=== PATIENT | female | born 1975 | race Caucasian/White ===

== ENCOUNTER 2017-04-30 08:51 | Inpatient (IN) | payer OTHER ==
[2017-04-30] MEDS ORDERED: Nalbuphine 10 MG/1 ML Vial IVPUSH PRN (09:02)
[2017-04-30] MEDS ORDERED: Sodium Chloride 0.9% 10 ML Syringe FLUSH PRN (09:02)
[2017-04-30] MEDS ORDERED: Sodium Chloride 0.9% 2.5 ML Syringe FLUSH PRN (09:02)
[2017-04-30] MEDS ORDERED: Misoprostol 200 MCG Tab PO PRN (09:02)
[2017-04-30] MEDS ORDERED: Lidocaine 1% 50 ML MDV INJECT PRN (09:02)
[2017-04-30] MEDS ORDERED: Carboprost Tromethamine 250 MCG/1 ML Amp IM PRN (09:02)
[2017-04-30] MEDS ORDERED: Butorphanol 1 MG/ML SDV IVPUSH PRN (09:02)
[2017-04-30] MEDS ORDERED: Water For Irrigation,Sterile 1,000 ML Container IRR PRN (09:02)
[2017-04-30] MEDS ORDERED: Terbutaline 1 MG/ML SDV SUBCUT PRN (09:02)
[2017-04-30] MEDS ORDERED: Methylergonovine 0.2 MG/1 ML Amp IM PRN (09:02)
[2017-04-30] MEDS ORDERED: Oxytocin/Lactated Ringers 30 UNIT/500 ML BAG IV SCH ×2 (09:15)
[2017-04-30] MEDS: Lactated Ringers 1,000 ML IV SCH ×3 (10:30→19:08)
[2017-05-01] MEDS ORDERED: Lanolin 100% Cream 7 GM Tube TOP PRN (00:47)
[2017-05-01] MEDS ORDERED: Docusate Sodium 100 MG Cap PO PRN (00:47)
[2017-05-01] MEDS ORDERED: Witch Hazel Medicated Pads 40/Jar TOP PRN (00:47)
[2017-05-01] MEDS ORDERED: Acetaminophen 500 MG Tab PO PRN (00:47)
[2017-05-01] MEDS ORDERED: Benzocaine/Menthol 20%-0.5% Spray 78 GM Cannister TOP PRN (00:47)
[2017-05-01] MEDS ORDERED: Methylergonovine 0.2 MG/1 ML Amp IM PRN (00:47)
[2017-05-01] MEDS ORDERED: Bisacodyl 10 MG Supp RECTAL PRN (00:47)
[2017-05-01] MEDS ORDERED: oxyCODONE 5 MG Tab PO PRN (00:47)
[2017-05-01] MEDS: Ibuprofen 800 MG Tab PO PRN ×3 (01:55→15:20)
--- NOTE | 2017-05-01 03:01 | OR ---
SURGEON: Deana Waldrop M.D. DATE OF PROCEDURE: 04/30/2017 PROCEDURE: Pitocin induction of labor, term spontaneous vaginal delivery. ANESTHESIA: None. ESTIMATED BLOOD LOSS: Less than 300 mL. FINDINGS: Live born male. score 8 and 9, weighing 3050 g. Placenta spontaneous. Schultze intact with 3 vessels. Perineum intact. BRIEF HISTORY: This is a 41-year-old female. She is G8, P5. She presents at 39 weeks' gestation for advanced maternal age induction of labor. She has had uncomplicated care. Prior to the onset of care, she was in alcohol treatment program. She has been sober and alcohol free throughout the . She has been doing well on Lexapro from a mood standpoint. Prior ultrasound documented a velamentous insertion of the placenta within an accessory lobe. She has had an otherwise routine care. She is group B strep negative. She presented to Labor and Delivery, 1 cm and thick. Due to her grand multiparous status, decision was made to proceed with Pitocin induction. She received Pitocin induction. When she was approximately 2 cm dilated, she had artificial rupture of membranes. Clear fluid was noted. She had category 1 with episodes of category 2 heart tones with occasional variable decelerations. Intrauterine pressure catheter was placed. Pitocin was maintained for adequate contractions between 8 and 16 milliunits/minute. She progressed to complete. DESCRIPTION OF PROCEDURE: With the patient in dorsal lithotomy position, the patient pushed over a 15- minute time period to a 5+ station, at which time the head was delivered spontaneously and atraumatically over the perineum with support with subsequent delivery of the infant's shoulders and body without any difficulty. The infant was bulb suctioned by nose and mouth and the infant was handed to the mother in the presence of the nurse in attendance at delivery. The is a live born male, score 8 and 9, weighing 3050 g. After the cord had ceased to pulsate, it was doubly clamped and cut and cord blood was collected for cord ABGs as well as routine cord blood sampling. Pitocin was initiated after delivery of the to assist with delivery of the placenta. With fundal massage and Pitocin, 30 minutes later the placenta delivered spontaneously. Schultze intact with 3 vessels. Careful inspection of the placenta revealed there to not be a velamentous cord insertion and there was no evidence of an accessory lobe or any missing portion of the placental base. Final sponge, needle, and instrument count were correct. There were no known complications. EBL was less than 300 mL. Mother and are in LDRP in good condition. EDMUNDO BOWERS /[id number]
--- NOTE | 2017-05-01 06:42 | PCM.PNPP ---
- General Info Date of Service: 05/01/17 Functional Status: Reports: pain controlled, tolerating diet, ambulating, urinating - Review of Systems General: Reports: No Symptoms HEENT: Reports: no symptoms Pulmonary: Reports: no symptoms Cardiovascular: Reports: No Symptoms Gastrointestinal: Reports: No symptoms Genitourinary: Reports: no symptoms Musculoskeletal: Reports: no symptoms Skin: Reports: no symptoms Neurological: Reports: No Symptoms Psychiatric: Reports: no symptoms - Patient Data Vital Signs - most recent: Last Vital Signs Temp 36.7 C 05/01/17 04:42 Pulse 64 05/01/17 04:42 Resp 16 05/01/17 04:42 BP 94/51 L 05/01/17 04:42 Pulse Ox 95 05/01/17 04:42 Weight - most recent: 92.261 kg Lab Results - last 24 hrs: Laboratory Results - last 24 hr 04/30/17 04/30/17 Range/Units 09:30 09:30 WBC 7.22 (4.0-11.0) K/uL RBC 4.02 L (4.30-5.90) M/uL Hgb 11.9 L (12.0-16.0) g/dL Hct 35.4 L (36.0-46.0) % MCV 88.1 (80.0-98.0) fL MCH 29.6 (27.0-32.0) pg MCHC 33.6 (31.0-37.0) g/dL RDW Std Deviation 46.0 (28.0-62.0) fl RDW Coeff of Jesus 14 (11.0-15.0) % Plt Count 146 L (150-400) K/uL MPV 9.50 (7.40-12.00) fL Nucleated RBC % 0.0 /100WBC Nucleated RBCs # 0 K/uL Blood Type A POSITIVE Antibody Screen NEGATIVE Med Orders - Current: Current Medications Acetaminophen (Tylenol Extra Strength) 500 mg PO Q4H PRN PRN Reason: Pain Benzocaine/Menthol (Dermoplast Pain Relief 20%-0.5% [place]) 78 gm TOP ASDIRECTED PRN PRN Reason: Perineal Comfort Measure Last Admin: 05/01/17 01:57 Dose: 1 applic Bisacodyl (Dulcolax) 10 mg RECTAL .ONCE PRN PRN Reason: Constipation Docusate Sodium (Colace) 100 mg PO BID PRN PRN Reason: Constipation Emollient Ointment (Lansinoh Hpa) 0 gm TOP ASDIRECTED PRN PRN Reason: Sore Nipples Last Admin: 05/01/17 01:55 Dose: 1 applic Escitalopram Oxalate (Lexapro) 20 mg PO DAILY MICHELLE Ibuprofen (Motrin) 800 mg PO Q6H PRN PRN Reason: Pain Last Admin: 05/01/17 01:55 Dose: 800 mg Methylergonovine Maleate (Methergine) 0.2 mg IM .ONCE PRN PRN Reason: Excessive Vaginal Bleeding Oxycodone HCl (Oxycodone) 5 mg PO Q2H PRN PRN Reason: Pain Witch Rosangela (Tucks) 1 pad TOP ASDIRECTED PRN PRN Reason: comfort care Last Admin: 05/01/17 01:54 Dose: 1 applic Discontinued Medications Butorphanol Tartrate (Stadol) 1 mg IVPUSH Q1H PRN PRN Reason: Pain Carboprost Tromethamine (Hemabate Ds) 250 mcg IM ASDIRECTED PRN PRN Reason: Post Hemorrhage Lactated Ringer's (Ringers, Lactated) 1,000 mls @ 150 mls/hr IV ASDIRECTED MICHELLE Last Admin: 04/30/17 19:08 Dose: 150 mls/hr Oxytocin/Lactated Ringer's (Pitocin In Lr 30 Units/500 Ml) 30 unit in 500 mls @ 250 mls/hr IV TITRATE MICHELLE; 250 MUNITS/MIN PRN Reason: Protocol Stop: 04/30/17 11:14 Oxytocin/Lactated Ringer's (Pitocin In Lr 30 Units/500 Ml) 30 unit in 500 mls @ 2 mls/hr IV TITRATE MICHELLE; 2 MUNITS/MIN PRN Reason: Protocol Last Titration: 04/30/17 19:35 Dose: 10 munits/min, 10 mls/hr Lidocaine HCl (Xylocaine 1%) 50 ml INJECT .ONCE PRN PRN Reason: Laceration repair Methylergonovine Maleate (Methergine) 0.2 mg IM ASDIRECTED PRN PRN Reason: Post Hemorrhage Misoprostol (Cytotec) 200 mcg PO .ONCE PRN PRN Reason: Post Hemorrhage Nalbuphine HCl (Nubain) 10 mg IVPUSH Q1H PRN PRN Reason: Pain (severe 7-10) Stop: 04/30/17 11:03 Sodium Chloride (Saline Flush) 10 ml FLUSH ASDIRECTED PRN PRN Reason: Keep Vein Open Sodium Chloride (Saline Flush) 2.5 ml FLUSH ASDIRECTED PRN PRN Reason: Keep Vein Open Sterile Water (Sterile Water For Irrigation) 1,000 ml IRR ASDIRECTED PRN PRN Reason: delivery Last Admin: 05/01/17 01:55 Dose: 1,000 ml Terbutaline Sulfate (Brethine) 0.25 mg SUBCUT ASDIRECTED PRN PRN Reason: Tacysystole - Infant Interaction Support Person: Significant Other - Recovery Exam Fundal Tone: Firm Fundal Level: At Umbilicus Fundal Placement: Midline Lochia Amount: Small Lochia Color: Rubra/Red Perineum Description: Intact, Minimal Bruising/Swelling Episiotomy/Laceration: None Bladder Status: Voiding Urinary Elimination: Voided - Exam General: alert, oriented Neck: supple Lungs: Normal respiratory effort Extremities: no edema Skin: warm, dry, intact Psy/Mental Status: alert, normal affect, normal mood - Problem List & Annotations (1) Vaginal delivery SNOMED Code(s): 464503248 Code(s): O80 - ENCOUNTER FOR FULL-TERM UNCOMPLICATED DELIVERY Status: Acute Current Visit: Yes - Problem List Review Problem List Initiated/Reviewed/Updated: Yes - My Orders Last 24 Hours: My Active Orders 04/30/17 09:03 Bedrest Bathroom Privileges [RC] ASDIRECTED Communication Order [RC] ASDIRECTED Communication Order [RC] ASDIRECTED Communication Order [RC] ASDIRECTED Heart Tones [RC] CONTINUOUS Non Stress Test [RC] PER UNIT ROUTINE May Shower [RC] ASDIRECTED Notify Provider [RC] PRN Notify Provider [RC] PRN Notify Provider [RC] PRN Notify Provider [RC] STAT Oxygen Therapy [RC] ASDIRECTED Up ad Amalia [RC] ASDIRECTED Vaginal Exam [RC] PRN Vaginal Exam [RC] PRN Vital Signs [RC] PER UNIT ROUTINE Vital Signs [RC] PER UNIT ROUTINE 05/01/17 00:47 Acetaminophen [Tylenol Extra Strength] 500 mg PO Q4H PRN Benzocaine/Menthol [Dermoplast Pain Relief 20%-0.5% [place]] 78 gm TOP ASDIRECTED PRN Bisacodyl [Dulcolax] 10 mg RECTAL .ONCE PRN Docusate Sodium [Colace] 100 mg PO BID PRN Ibuprofen [Motrin] 800 mg PO Q6H PRN Lanolin [Lansinoh HPA] See Dose Instructions TOP ASDIRECTED PRN Methylergonovine [Methergine] 0.2 mg IM .ONCE PRN Witch Rosangela [Tucks] 1 pad TOP ASDIRECTED PRN oxyCODONE 5 mg PO Q2H PRN Resuscitation Status Routine 05/01/17 00:48 Patient Status [ADT] Routine May Shower [RC] ASDIRECTED Up ad Amalia [RC] ASDIRECTED Vital Signs [RC] PER UNIT ROUTINE Assess Lochia [WOMSER] Per Unit Routine Assess Uterine Involution [WOMSER] Per Unit Routine Perineal Care [OM.PC] Per Unit Routine Peripheral IV Discontinue [OM.PC] Routine 05/01/17 09:00 Escitalopram [Lexapro] 20 mg PO DAILY 05/01/17 Breakfast Regular Diet [DIET] 05/02/17 05:11 HEMOGLOBIN/HEMATOCRIT,HH [HEME] Timed - Assessment Assessment:: PPD#1 after just prior to midnight. STable, minimal lochia, has been well. - Plan Plan:: Continue care, anticipate discharge tomorrow am.
[2017-05-01] MEDS: Escitalopram 10 MG Tab PO SCH (08:28)
[2017-05-02] MEDS: Ibuprofen 800 MG Tab PO PRN (06:24)
--- NOTE | 2017-05-02 08:21 | PCM.PNPP ---
- General Info Date of Service: 05/02/17 Functional Status: Reports: pain controlled, tolerating diet, ambulating, urinating - Review of Systems General: Denies: Fever, Weakness, Fatigue Pulmonary: Denies: shortness of breath, pleuritic chest pain, cough Cardiovascular: Denies: Chest Pain, Palpitations, Dyspnea on Exertion Gastrointestinal: Denies: Abdominal pain Genitourinary: Denies: dysuria Psychiatric: Reports: no symptoms - General Info Date of Service: 05/02/17 - Patient Data Vital Signs - most recent: Last Vital Signs Temp 36.7 C 05/02/17 04:00 Pulse 60 05/02/17 04:00 Resp 16 05/02/17 04:00 BP 108/60 05/02/17 04:00 Pulse Ox 99 05/02/17 04:00 Weight - most recent: 92.261 kg Lab Results - last 24 hrs: Laboratory Results - last 24 hr 05/02/17 Range/Units 04:43 Hgb 11.0 L (12.0-16.0) g/dL Hct 33.4 L (36.0-46.0) % Med Orders - Current: Current Medications Acetaminophen (Tylenol Extra Strength) 500 mg PO Q4H PRN PRN Reason: Pain Benzocaine/Menthol (Dermoplast Pain Relief 20%-0.5% [place]) 78 gm TOP ASDIRECTED PRN PRN Reason: Perineal Comfort Measure Last Admin: 05/01/17 01:57 Dose: 1 applic Bisacodyl (Dulcolax) 10 mg RECTAL .ONCE PRN PRN Reason: Constipation Docusate Sodium (Colace) 100 mg PO BID PRN PRN Reason: Constipation Last Admin: 05/01/17 21:04 Dose: 100 mg Emollient Ointment (Lansinoh Hpa) 0 gm TOP ASDIRECTED PRN PRN Reason: Sore Nipples Last Admin: 05/01/17 01:55 Dose: 1 applic Escitalopram Oxalate (Lexapro) 20 mg PO DAILY MICHELLE Last Admin: 05/01/17 08:28 Dose: 20 mg Ibuprofen (Motrin) 800 mg PO Q6H PRN PRN Reason: Pain Last Admin: 05/02/17 06:24 Dose: 800 mg Methylergonovine Maleate (Methergine) 0.2 mg IM .ONCE PRN PRN Reason: Excessive Vaginal Bleeding Oxycodone HCl (Oxycodone) 5 mg PO Q2H PRN PRN Reason: Pain Witch Rosangela (Tucks) 1 pad TOP ASDIRECTED PRN PRN Reason: comfort care Last Admin: 05/01/17 01:54 Dose: 1 applic Discontinued Medications Butorphanol Tartrate (Stadol) 1 mg IVPUSH Q1H PRN PRN Reason: Pain Carboprost Tromethamine (Hemabate Ds) 250 mcg IM ASDIRECTED PRN PRN Reason: Post Hemorrhage Lactated Ringer's (Ringers, Lactated) 1,000 mls @ 150 mls/hr IV ASDIRECTED MICHELLE Last Admin: 04/30/17 19:08 Dose: 150 mls/hr Oxytocin/Lactated Ringer's (Pitocin In Lr 30 Units/500 Ml) 30 unit in 500 mls @ 250 mls/hr IV TITRATE MICHELLE; 250 MUNITS/MIN PRN Reason: Protocol Stop: 04/30/17 11:14 Oxytocin/Lactated Ringer's (Pitocin In Lr 30 Units/500 Ml) 30 unit in 500 mls @ 2 mls/hr IV TITRATE MICHELLE; 2 MUNITS/MIN PRN Reason: Protocol Last Titration: 04/30/17 19:35 Dose: 10 munits/min, 10 mls/hr Lidocaine HCl (Xylocaine 1%) 50 ml INJECT .ONCE PRN PRN Reason: Laceration repair Methylergonovine Maleate (Methergine) 0.2 mg IM ASDIRECTED PRN PRN Reason: Post Hemorrhage Misoprostol (Cytotec) 200 mcg PO .ONCE PRN PRN Reason: Post Hemorrhage Nalbuphine HCl (Nubain) 10 mg IVPUSH Q1H PRN PRN Reason: Pain (severe 7-10) Stop: 04/30/17 11:03 Sodium Chloride (Saline Flush) 10 ml FLUSH ASDIRECTED PRN PRN Reason: Keep Vein Open Sodium Chloride (Saline Flush) 2.5 ml FLUSH ASDIRECTED PRN PRN Reason: Keep Vein Open Sterile Water (Sterile Water For Irrigation) 1,000 ml IRR ASDIRECTED PRN PRN Reason: delivery Last Admin: 05/01/17 01:55 Dose: 1,000 ml Terbutaline Sulfate (Brethine) 0.25 mg SUBCUT ASDIRECTED PRN PRN Reason: Tacysystole - Infant Interaction Disposition, : in Room with Family Infant Interaction: Holding Infant Infant Feeding: Breastfed Infant; Nursed Well Support Person: Significant Other - Recovery Exam Fundal Tone: Firm Fundal Level: 1 Fingerbreadths Below Umbilicus Fundal Placement: Midline Lochia Amount: Scant Lochia Color: Rubra/Red Perineum Description: Intact, Minimal Bruising/Swelling Episiotomy/Laceration: None Bladder Status: Voiding Urinary Elimination: Voided - Exam General: alert, oriented Lungs: Clear to auscultation, Normal respiratory effort Cardiovascular: Regular Rate, Regular Rhythm Abdomen: bowel sounds present, soft, no tenderness, no distension Extremities: edema (trace) Psy/Mental Status: alert, normal affect, normal mood - Problem List Review Problem List Initiated/Reviewed/Updated: Yes - Assessment Assessment:: PPD#2 after . Stable, minimal lochia, has been well. Discharge home today. - Plan Plan:: Discharge home today. Nothing in the vagina for 6 weeks. Continue PNV while breast feeding. Can use OTC ibuprofen/tylenol as need for pain. Instructed patient to call if she develops fever greater than 101 or bleeding through a large pad an hour. F/U with [facility] in 6 weeks.
[2017-05-02] MEDS: Escitalopram 10 MG Tab PO SCH (08:58)
[2017-05-02 10:31] VITALS: BP 109/65
== END 2017-05-02 11:05 | disposition home or self-care (01) | DRG 775 ==
LOC: MW.OBCHECK 08:51 → MW.OB 08:59 → MW.OBCHECK 09:03 → OBSVTOIN 22:45
PROVIDERS: ADMIT Obstetrics & Gynecology; ATTEND Obstetrics & Gynecology
PROC: 10E0XZZ Delivery of Products of Conception, External Approach (ICD-10-PCS; principal; 2017-04-30)
PROC: 10907ZC Drainage of Amniotic Fluid, Therapeutic from Products of Conception, Via Natural or Artificial Opening (ICD-10-PCS; 2017-04-30)
PROC: 3E033VJ Introduction of Other Hormone into Peripheral Vein, Percutaneous Approach (ICD-10-PCS; 2017-04-30)
DX: O40.9XX0 Polyhydramnios, unspecified trimester, not applicable or unspecified (principal); Z3A.39 39 weeks gestation of pregnancy; Z37.0 Single live birth; Z87.898 Personal history of other specified conditions
CPT/HCPCS: 36415; 59025; 85014; 85018; 85027; 86850; 86900; 86901; A9270-GY; J7120